=== PATIENT | male | born 1960 | race Caucasian/White ===

== ENCOUNTER 2017-09-09 03:59 | Emergency (ER) | payer BC ==
[~2017-09-09] VITALS: Ht 170.2 cm; Wt 66.0 kg
[2017-09-09 04:00] VITALS: BP 190/102; PULSE 85; RESP 18; TEMP 97.8; O2SAT 95
[2017-09-09] MEDS ORDERED: AMOXICILLIN (TRIHYDRATE) 500 MG CAP PO ONE (04:20)
[2017-09-09] MEDS ORDERED: AMOXICILLIN 875 MG TAB PO ONE (04:20)
[2017-09-09] MEDS ORDERED: AMOXICILLIN (TRIHYDRATE) 500 MG CAP ONE (04:34)
[2017-09-09] MEDS ORDERED: KETOROLAC TROMETHAMINE 60 MG/2 ML (IM) VIAL IM ONE ×2 (04:34→05:00)
[2017-09-09] MEDS ORDERED: PERC10TA27 PO (05:50)
[2017-09-09] MEDS ORDERED: AMOX875T PO (05:50)
--- NOTE | 2017-09-09 05:52 | PD ---
HPI Chief Complaint: Oral / Dental Pain or Problem Time Seen by Provider: 04:15 Travel History International Travel<30 days: No Contact w/Intl Traveler<30days: No Traveled to known affect area: No History of Present Illness HPI The patient is a 57-year-old male who complains of dental pain since yesterday. He is particularly painful around tooth #30. He has not called a dentist yet. He intends to call a dentist and he has dental insurance. He drove here tonight and he has to drive himself home. He claims a pain of 10 over 10, an aching type pain. [facility] Social History Tobacco Use: No Allergies-Medications (Allergen,Severity, Reaction): Coded Allergies: No Known Allergies (Unverified , 09/09/17) Reported Meds & Prescriptions Reported Meds & Active Scripts Active Percocet (Oxycodone-Acetaminophen) 10-325 mg Tab 1 Tab PO Q4H PRN Amoxicillin 875 Mg Tab 875 Mg PO BID Review of Systems Except as stated in HPI: all other systems reviewed are Neg Physical Exam Narrative GENERAL: The patient is alert, oriented 3 in moderate distress with his dental pain around tooth #30. His vital signs show blood pressure 192/109 but are otherwise normal. SKIN: Focused skin assessment warm/dry. HEAD: Atraumatic. Normocephalic. EYES: Pupils equal and round. No scleral icterus. No injection or drainage. ENT: No nasal bleeding or discharge. Mucous membranes pink and moist. NECK: Trachea midline. No JVD. CARDIOVASCULAR: Regular rate and rhythm. No murmur appreciated. RESPIRATORY: No accessory muscle use. Clear to auscultation. Breath sounds equal bilaterally. GASTROINTESTINAL: Abdomen soft, non-tender, nondistended. Hepatic and splenic margins not palpable. MUSCULOSKELETAL: No obvious deformities. No clubbing. No cyanosis. No edema. NEUROLOGICAL: Awake and alert. No obvious cranial nerve deficits. Motor grossly within normal limits. Normal speech. PSYCHIATRIC: Appropriate mood and affect; insight and judgment normal. DENTAL: No loose or chipped teeth. No malocclusion. There are no drainable abscesses around tooth #30 or anywhere else around the teeth. There is exquisite tenderness on tooth #30. Data Data Last Documented VS Vital Signs Date Time Temp Pulse Resp B/P (MAP) Pulse Ox O2 Delivery O2 Flow Rate FiO2 09/09/17 04:00 97.8 85 18 190/102 (131) 95 Orders Orders Ketorolac Inj (Toradol Inj) (09/09/17 04:34) Amoxicillin (Trimox) (09/09/17 04:34) Ketorolac Inj (Toradol Inj) (09/09/17 05:00) Amoxicillin (Trimox) (09/09/17 04:20) MDM Medical Decision Making Medical Screen Exam Complete: Yes Emergency Medical Condition: Yes Medical Record Reviewed: Yes Differential Diagnosis Dental infection, drainable dental abscess, Venkatesh's angina-highly unlikely Narrative Course The patient has a dental infection without any drainable abscess. Plan: He will set up appointment with a dentist and is given amoxicillin 875 mg to take twice daily for 10 days. He is given 1 g of amoxicillin orally to take now. He is also given Percocet 5/325 for pain. Diagnosis Primary Impression: Dental infection Additional Instructions: As we discussed, do not drink alcohol or drive on the Percocet. Follow-up with a dentist as soon as possible. Med/Other Pt SpecificInfo: Prescription(s) given Scripts Oxycodone-Acetaminophen (Percocet) 10-325 mg Tab 1 TAB PO Q4H Y for PAIN, #30 TAB 0 Refills Prov: Saad Alfaro MD 09/09/17 Amoxicillin (Amoxicillin) 875 Mg Tab 875 MG PO BID for Infection, #20 TAB 0 Refills Prov: Saad Alfaro MD 09/09/17 Disposition: 01 DISCHARGE HOME Condition: Stable Saad Alfaro MD Sep 09, 2017 05:52
== END 2017-09-09 04:50 | disposition home or self-care (01) ==
LOC: PHED 03:59
DX: K04.7 Periapical abscess without sinus (principal)
CPT/HCPCS: 96372; 99284; J1885

== ENCOUNTER 2018-02-01 15:40 | Emergency (ER) | payer BC ==
[~2018-02-01] VITALS: Ht 170.2 cm; Wt 95.0 kg
[~2018-02-01 15:40] MED LIST: AMOX875T PO; PERC10TA27 PO
[2018-02-01 15:45] VITALS: BP 126/86; PULSE 101; RESP 16; TEMP 98.6; O2SAT 94
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
[2018-02-01] MEDS ORDERED: SILVER SULFADIAZINE 1% CR 50 GM JAR TOPICAL ONE (17:45)
[2018-02-01] MEDS ORDERED: ACETAMINOPHEN/HYDROcodone 325 MG/5 MG TAB PO ONE (17:45)
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
[2018-02-01] MEDS ORDERED: IBUP1TAB7 PO (19:12)
[2018-02-01] MEDS ORDERED: SILV1CRE20 TOPICAL (19:12)
[2018-02-01 19:46] VITALS: BP 144/98; PULSE 98; RESP 16; O2SAT 98
== END 2018-02-01 19:47 | disposition home or self-care (01) ==
LOC: NEDAMB 15:40
DX: S50.812A Abrasion of left forearm, initial encounter (principal); S99.922A Unspecified injury of left foot, initial encounter; V23.4XXA Motorcycle driver injured in collision with car, pick-up truck or van in traffic accident, initial encounter; Y92.410 Unspecified street and highway as the place of occurrence of the external cause
CPT/HCPCS: 73660; 99283; E0113; L3260; 16000

== ENCOUNTER 2018-07-21 12:28 | Inpatient (IN) ==
[2018-07-21] MEDS ORDERED: Morphine Inj 4 MG/ML Vial IV.PUSH ONE (13:18)
--- NOTE | 2018-07-21 13:23 | ED ---
HPI General Chief Complaint: Extremity Injury, Upper Stated Complaint: lt arm injury x lastnight Time Seen by Provider: 07/21/18 13:19 Source: patient Mode of arrival: ambulatory History of Present Illness HPI narrative: 57-year-old male patient presents to the ER today, states that he was lifting a 60 pound weight when he felt a sudden pain in his left biceps area, heard a pop, and since then he has had trouble with flexing and extending his elbow. He denies any other issues or injuries. Pain is currently rated an 8 out of 10. Related Data Home Medications Medication Instructions Recorded Confirmed sildenafil [Viagra] 50 mg PO DAILY PRN 07/21/18 07/21/18 Allergies Allergy/AdvReac Type Severity Reaction Status Date / Time No Known Allergies Allergy Verified 07/21/18 12:35 Review of Systems ROS: all other systems reviewed are negative [facility] Social History Social History Substance History: No History of Abuse Smoking Status: Never smoker How Often Do You Have a Drink Containing Alcohol: Monthly or less Recent Travel in [facility] within the Last 8 Weeks: No Recent Out of Country Travel within the Last 8 Weeks: No Immunization History Tetanus Immunization: Unsure Hx Influenza Vaccine This Season: Yes Exam Narrative Exam Narrative: GENERAL: Well-developed middle-age white male patient currently and mild distress. Awake and oriented x3. SKIN: Focused skin assessment warm/ dry. HEAD: Atraumatic. Normocephalic. EYES: Pupils equal and round. No scleral icterus. No injection or drainage. ENT: No nasal bleeding or discharge. Mucous membranes pink and moist. NECK: Trachea midline. No JVD. CARDIOVASCULAR: Regular rate and rhythm. No murmur appreciated. RESPIRATORY: No accessory muscle use. Clear to auscultation. Breath sounds equal bilaterally. GASTROINTESTINAL: Abdomen soft, non-tender, nondistended. Hepatic and splenic margins not palpable. MUSCULOSKELETAL: No obvious deformities. No clubbing. No cyanosis. No edema. There is tenderness to palpation of the distal head of the biceps, and tenderness to palpation of the medial elbow, patient has decreased strength with flexing of the elbow. NEUROLOGICAL: Awake and alert. No obvious cranial nerve deficits. Motor grossly within normal limits. Normal speech. PSYCHIATRIC: Appropriate mood and affect; insight and judgment normal. Course Initial Documented Vital Signs Temperature 97.6 F 07/21/18 12:35 Pulse Rate 120 H 07/21/18 12:35 Respiratory Rate 16 07/21/18 12:35 Blood Pressure 205/101 H 07/21/18 12:35 Pulse Oximetry 95 07/21/18 12:35 Last Documented Vital Signs Temperature 97.6 F 07/21/18 12:35 Pulse Rate 85 07/21/18 17:43 Respiratory Rate 16 07/21/18 17:43 Blood Pressure 140/95 H 07/21/18 17:43 Pulse Oximetry 99 07/21/18 17:43 Medical Decision Making MDM Narrative Medical decision making narrative: X-ray did not show any signs of bony injuries. There is suspicion that this is likely a biceps tendon rupture. Case is discussed with PA for Dr. Silva who states that the patient will need an MRI and then can be released with close follow-up to the office. However, while in the ER, is noted that the patient is going intermittently into A. fib with RVR. His heart rate was in the 120s at some points, and then he would go back into a normal sinus rhythm. 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 He is not on any anticoagulation. At this point, my plan would be to admit him for further treatment of atrial fibrillation evaluation as well. Case is discussed with Dr. Camacho for admission. Medical Screen Exam Complete: Yes Emergency Medical Condition: Yes Differential Diagnosis Differential Diagnosis: Biceps muscle injury versus biceps tendon rupture versus strain Lab Data Lab results reviewed: Yes I reviewed the patient's lab results. Result diagrams: 07/21/18 13:22 07/21/18 13:22 Lab Results 07/21/18 07/21/18 Range/Units 13:22 13:22 CBC w Diff Auto diff final WBC 8.5 (4.0-11.0) th/mm3 RBC 5.32 (4.50-5.90) mil/mm3 Hgb 17.4 H (13.0-17.0) gm/dL Hct 50.7 (39.0-51.0) % MCV 95.5 (80.0-100.0) fL MCH 32.7 (27.0-34.0) pg MCHC 34.3 (32.0-36.0) % RDW 12.3 (11.6-17.2) % Plt Count 209 (150-450) th/mm3 MPV 8.5 (7.0-11.0) fL Neut % (Auto) 75.0 H (16.0-70.0) % Lymph % (Auto) 10.1 (9.0-44.0) % [place] % (Auto) 9.7 H (0.0-8.0) % Eos % (Auto) 4.6 H (0.0-4.0) % Baso % (Auto) 0.6 (0.0-2.0) % Neut # (Auto) 6.3 (1.8-7.7) th/mm3 Lymph # (Auto) 0.9 L (1.0-4.8) th/mm3 [place] # (Auto) 0.8 (0.0-0.9) th/mm3 Eos # (Auto) 0.4 (0.0-0.4) th/mm3 Baso # (Auto) 0.1 (0.0-0.2) th/mm3 WBC Differential . Differential Comment . Sodium 142 (136-145) meq/L Potassium 3.8 (3.5-5.1) meq/L Chloride 107 (98-107) meq/L Carbon Dioxide 25.7 (21.0-32.0) meq/L Anion Gap 9 (5-15) meq/L BUN 13 (7-18) mg/dL Creatinine 1.20 (0.60-1.30) mg/dL Estimated GFR 62 L (>89) mL/min Random Glucose 132 H (74-106) mg/dL Calcium 8.2 L (8.5-10.1) mg/dL Imaging Data Attestation: I personally reviewed and interpreted this imaging study as follows : Radiologist's impression: Humerus X-Ray 07/21/18 13:18 CONCLUSION: No acute bony abnormality identified. Discharge Plan Discharge Disposition Patient Disposition: 30 Still Patient Discharge Condition Condition: Stable Discharge Details Anticipated Discharge Date: 07/21/18 Diagnosis: Biceps tendon rupture, traumatic, Atrial fibrillation Physicians Team ED Provider: Dena Foster Primary Care Provider: Primary Care Physici,Belén Rxs /Orders / Referrals /Forms Prescriptions: No Action sildenafil [Viagra] 50 mg Tablet 50 mg PO DAILY PRN (Reason: Erectile Dysfunction) RF: 0 Referrals: Sin Silva MD [Physician] - 3 Days Status ED Status: With Doctor
[2018-07-21 13:27] LABS: Baso # (Auto) 0.1 th/mm3 (0.0-0.2); Baso % (Auto) 0.6 % (0.0-2.0); Eos # (Auto) 0.4 th/mm3 (0.0-0.4); Eos % (Auto) 4.6 % (0.0-4.0); Hematocrit 50.7 % (39.0-51.0); Hemoglobin 17.4 gm/dL (13.0-17.0); Lymph # (Auto) 0.9 th/mm3 (1.0-4.8); Lymph % (Auto) 10.1 % (9.0-44.0); Mean Corpuscular HGB Conc 34.3 % (32.0-36.0); Mean Corpuscular Hemoglobin 32.7 pg (27.0-34.0); Mean Corpuscular Volume 95.5 fL (80.0-100.0); Mean Platelet Volume 8.5 fL (7.0-11.0); Mono # (Auto) 0.8 th/mm3 (0.0-0.9); Mono % (Auto) 9.7 % (0.0-8.0); Neut # (Auto) 6.3 th/mm3 (1.8-7.7); Platelet Count 209 th/mm3 (150-450); Red Blood Count 5.32 mil/mm3 (4.50-5.90); Red Cell Distribution Width 12.3 % (11.6-17.2); White Blood Count 8.5 th/mm3 (4.0-11.0)
[2018-07-21 13:38] LABS: Potassium 3.8 meq/L (3.5-5.1)
[2018-07-21 13:41] LABS: Calcium 8.2 mg/dL (8.5-10.1); Carbon Dioxide 25.7 meq/L (21.0-32.0)
--- NOTE | 2018-07-21 14:35 | XR ---
EXAM DATE: 07/21/2018 1:18 PM EDT AGE/SEX: 57 years / Male INDICATIONS: Left humerus pain after lifting weights CLINICAL DATA: This is the patient's initial encounter. Patient reports that signs and symptoms have been present for 2 days and indicates a pain score of 8/10. MEDICAL/SURGICAL HISTORY: None. None. COMPARISON: No prior exams available for comparison. FINDINGS: Bony structures are intact and in normal alignment. Osseous density is normal. Soft tissues are unre markable. No radiopaque foreign bodies seen. CONCLUSION: No acute bony abnormality identified. Electronically signed by: Shiraz Dixon MD 07/21/2018 2:33 PM EDT
[2018-07-21] MEDS ORDERED: dilTIAZem Inj 125 MG in Sodium Chlor 0.9% Inj 100 ML IV.CONT PRN (18:06)
--- NOTE | 2018-07-21 18:20 | MR ---
EXAM DATE: 07/21/2018 3:42 PM EDT AGE/SEX: 57 years / Male INDICATIONS: Tendon tear. CLINICAL DATA: This is the patient's initial encounter. Patient reports that signs and symptoms have been present for 1 day and indicates a pain score of 5/10. MEDICAL/SURGICAL HISTORY: None. None. COMPARISON: No prior exams available for comparison. TECHNIQUE: Multiplanar, multisequence MRI examination was performed without contrast. FINDINGS: The examination demonstrates diffuse edematous changes involving the distal biceps and biceps tendon. The biceps tendon itself is coiled and retracted indicating avulsion from the bicipital tuberosity a s well. The study was ordered as MRI of the humerus as such there is only one set of axial images wh ich encompasses the bicipital tuberosity of the radius. I do not see the biceps tendon at this locati on. More detailed evaluation of its distal attachment could be performed with MRI imaging of the elbo w. The proximal aspect of the musculotendinous junction appears intact however there are edematous richter es in the proximal fibers of the musculotendinous junction suggesting partial tear at this location a s well. No abnormal marrow signal seen within the humerus. The remainder the examination is unremarkable. CONCLUSION: The exam the biceps tendon to be coiled within the distal arm and extensive edematous changes. Findin gs would be consistent with a tear of the biceps tendon I believe this represents a complete tear at the level of the bicipital tuberosity. There is also significant edema and abnormal signal in the mus culotendinous junction suggesting at least partial tear at this level as well. More detailed evaluati on of this could be performed with MRI imaging of the elbow if it is felt clinically warranted. Electronically signed by: Shiraz Dixon MD 07/21/2018 6:19 PM EDT
[2018-07-21 19:31] LABS: Creatine Kinase 291 U/L (39-308)
[2018-07-21 20:48] VITALS: TEMP 97.9
[2018-07-21] MEDS: Heparin - SQ 10,000 UNITS/ML Vial SQ SCH (21:16)
[2018-07-21 23:36] LABS: Creatine Kinase 255 U/L (39-308)
[2018-07-22 01:33] LABS: T4 (Thyroxine) 6.1 mcg/dL (4.5-12.1)
[2018-07-22 05:21] VITALS: O2SAT 96
[2018-07-22] MEDS: dilTIAZem CD 120 MG Capsule PO SCH ×2 (09:27→10:11)
[2018-07-22] MEDS: Heparin - SQ 10,000 UNITS/ML Vial SQ SCH (09:27)
--- NOTE | 2018-07-22 10:50 | XR ---
EXAM DATE: 07/22/2018 12:00 AM EDT AGE/SEX: 57 years / Male INDICATIONS: Chest pain CLINICAL DATA: This is the patient's initial encounter. Patient reports that signs and symptoms have been present for 2 days and indicates a pain score of 5/10. MEDICAL/SURGICAL HISTORY: None. None. COMPARISON: No prior exams available for comparison. FINDINGS: The heart is minimally enlarged. There is no congestive failure, pneumothorax or pleural effusion. No pneumothorax. The portion of the bony skeleton visualized is unremarkable. CONCLUSION: Mild compensated cardiomegaly Electronically signed by: Piero Dixon MD 07/22/2018 10:49 AM EDT
[2018-07-22] MEDS ORDERED: dilTIAZem CD 120 MG Capsule PO ONE (11:00)
[2018-07-22 11:17] VITALS: BP 137/85; PULSE 74; RESP 21
--- NOTE | 2018-07-22 11:34 | P.HPIM ---
History of Present Illness Primary Care Physician: No Primary Care Physician History of Present Illness: Mr. Sloan is a 57-year-old male. He came into the emergency department after having pain at his left bicep. This occurred while he was lifting weights while working out. Tendon tear is present, Ortho surgery has reviewed the imaging recommended outpatient follow-up. However, patient was found to be in A. fib RVR in the emergency department. He was started on diltiazem overnight and monitored. He has resolution of his A. fib RVR at this point. This morning we will transitioning him to p.o. treatment. Eliquis has been started as a blood thinner. Cardiology has evaluated the patient this morning. Further monitoring recommended. No complaints of chest pain. Negative ACS evaluation. - Diagnosis (1) New onset atrial fibrillation (2) Atrial fibrillation with RVR (3) Biceps tendon rupture, traumatic (4) Atrial fibrillation Inpatient Certification: I certify that the inpatient services were ordered in accordance with Medicare regulations governing the order. This includes certification that hospital inpatient services are reasonable and necessary and in the case of services not specified as inpatient-only under 42 CFR 419.22(n), that they are appropriately provided as inpatient services in accordance to with the 2-midnight benchmark under 43 CFR 412.3(e) Estimated Total Length of Stay (Days): 3 Plans for Post Hospital Care: Home Review of Systems Constitutional: No fevers, no chills no night sweats, no fatigue, no weakness Eyes: No eye pain, no blurry vision, no loss of vision ENT: No sore throat, no ear pain, no rhinorrhea Cardiovascular: No chest pain, no tachycardia, no palpitations, no shortness of breath, no syncope Respiratory: No wheezing, no cough, no shortness of breath Gastrointestinal: No abdominal pain, no black tarry stools, no bright red blood per rectum, no vomiting, no diarrhea Musculoskeletal: No joint pain, no muscle cramps, no stiffness, pain at left biceps tendon Integumentary: No rash, no ulcers, no drainage Neurologic: No sensory loss, no loss of motor function, no dizziness Psychiatric: No behavioral changes, no hallucinations, no suicidal ideations PMFSH - History History Provided By: Patient - Medical History Medical History: Medical History (Last Updated 07/22/18 @ 11:28 by Shiraz Camacho MD) Benign prostatic hyperplasia - Family History Family History: Family History (Last Updated 07/22/18 @ 11:29 by Shiraz Camacho MD) Other Osteoarthritis - Tobacco History Second Hand Smoke Exposure: No Smoking Status: Never smoker - Alcohol History How Often Do You Have a Drink Containing Alcohol: 4 or more times a week - Substance Use History Substance History: No History of Abuse - Substance Use Type Alcohol Status: Active Route Used: By Mouth Frequency: 4 beers every other day 6 pack on weekends Reason for Use: Calm Down - Travel History Recent Travel in the [place] Within the Last 8 Weeks: No Recent Travel Out of the Country Within the Last 8 Weeks: No - Immunization History Tetanus Immunization: Unsure Hx Influenza Vaccine This Season: Yes Medications and Allergies Active Medications: Active Medications Apixaban (Eliquis) 5 mg PO BID TERRI Diltiazem HCl (Cardizem Cd 24hr) 240 mg PO DAILY TERRI Sodium Chloride (Ns Flush) 2 ml IV.FLUSH PRN PRN PRN Reason: FLUSH AFTER USING IV ACCESS Sodium Chloride (Ns Flush) 2 ml IV.FLUSH BID TERRI Last Admin: 07/22/18 09:29 Dose: 2 ml Allergies Allergy/AdvReac Type Severity Reaction Status Date / Time No Known Allergies Allergy Verified 07/21/18 12:35 Home Medications Medication Instructions Recorded Confirmed Type sildenafil [Viagra] 50 mg PO DAILY PRN 07/21/18 07/21/18 History Exam Vital signs: Vital Signs 07/21/18 12:35 07/21/18 12:53 07/21/18 13:30 Temperature 97.6 F Pulse Rate 120 H 118 H 120 H Respiratory Rate 16 18 15 Blood Pressure 205/101 H 152/85 H 150/88 H Pulse Oximetry 95 96 100 07/21/18 14:30 07/21/18 15:46 07/21/18 17:43 Temperature Pulse Rate 75 80 85 Respiratory Rate 16 16 16 Blood Pressure 159/100 H 127/88 140/95 H Pulse Oximetry 96 100 99 07/21/18 19:04 07/21/18 20:46 07/21/18 22:30 Temperature 97.9 F Pulse Rate 90 125 H 88 Respiratory Rate 16 27 H 25 H Blood Pressure 158/98 H 159/93 H 133/88 Pulse Oximetry 96 96 96 07/21/18 23:00 07/22/18 01:30 07/22/18 03:00 Temperature Pulse Rate 86 94 H 78 Respiratory Rate 11 L 21 12 Blood Pressure 139/86 127/86 133/83 Pulse Oximetry 94 L 96 95 07/22/18 05:00 07/22/18 07:00 07/22/18 07:30 Temperature Pulse Rate 74 76 80 Respiratory Rate 14 10 L 12 Blood Pressure 97/70 L 123/86 103/74 Pulse Oximetry 96 95 97 07/22/18 08:00 07/22/18 08:30 07/22/18 09:00 Temperature Pulse Rate 82 98 H 92 H Respiratory Rate 21 19 19 Blood Pressure 109/75 138/97 H 151/92 H Pulse Oximetry 95 97 95 07/22/18 09:30 07/22/18 10:00 07/22/18 10:30 Temperature Pulse Rate 88 92 H 74 Respiratory Rate 18 22 24 Blood Pressure 120/89 144/98 H 137/85 Pulse Oximetry 96 96 96 07/22/18 11:00 Temperature Pulse Rate 74 Respiratory Rate 21 Blood Pressure Pulse Oximetry Intake & Output 07/21/18 07/22/18 07/22/18 18:59 06:59 18:59 Intake Total 215 / 215 Output Total 900 / 900 Balance -900 / -900 215 / 215 Weight 97 kg 97.2 kg Intake: IV 15 / 15 Cardizem Inj 125 MG In NS Inj 15 / 15 100 ML @ 5 MG/HR 5 mls/hr IV. CONT TITRATE PRN Rx#:[id number] Oral 200 / 200 Output: Urine 900 / 900 Other: Date of Last Bowel Movement 08/21/18 08/21/18 Weight On Admission 97.3 kg Narrative: GENERAL: NAD, A&Ox3 HEAD: Normocephalic. NECK: Supple, trachea midline. No lymphadenopathy. EYES: No scleral icterus. No injection or drainage. CARDIOVASCULAR: Regular rate and rhythm without murmurs, gallops, or rubs. RESPIRATORY: Breath sounds equal bilaterally. No accessory muscle use. GASTROINTESTINAL: Abdomen soft, non-tender, nondistended. MUSCULOSKELETAL: No cyanosis, or edema. Tenderness at distal biceps tendon, no palpable abnormality of the biceps muscle. SKIN: Warm and dry. NEURO: No focal neurological deficits. Results - Labs CBC & Chem 7: 07/21/18 13:22 07/21/18 13:22 Labs: Short CBC 07/21/18 Range/Units 13:22 WBC 8.5 (4.0-11.0) th/mm3 Hgb 17.4 H (13.0-17.0) gm/dL Hct 50.7 (39.0-51.0) % Plt Count 209 (150-450) th/mm3 BMP 07/21/18 13:22 Sodium 142 Potassium 3.8 Chloride 107 Carbon Dioxide 25.7 BUN 13 Creatinine 1.20 Calcium 8.2 L Cardiac Enzymes 07/21/18 07/21/18 Range/Units 19:02 22:30 Total Creatine Kinase 291 255 (39-308) U/L Troponin I Less than 0.02 L Less than 0.02 L (0.02-0.05) ng/mL - Imaging Impressions Humerus X-Ray 07/21/18 13:18 CONCLUSION: No acute bony abnormality identified. Humerus MRI 07/21/18 15:07 CONCLUSION: The exam the biceps tendon to be coiled within the distal arm and extensive edematous changes. Findings would be consistent with a tear of the biceps tendon I believe this represents a complete tear at the level of the bicipital tuberosity. There is also significant edema and abnormal signal in the musculotendinous junction suggesting at least partial tear at this level as well. More detailed evaluation of this could be performed with MRI imaging of the elbow if it is felt clinically warranted. Chest X-Ray 07/22/18 00:00 CONCLUSION: Mild compensated cardiomegaly Caprini VTE Risk Assessment Caprini VTE Risk Assessment: Moderate/High Risk (score >= 2) Caprini Risk Assessment Model: Point Value = 1 Point Value = 2 Point Value = 3 Point Value = 5 Age 41-60 Minor surgery BMI > 25 kg/m2 Swollen legs Varicose veins or History of unexplained or recurrent spontaneous Oral contraceptives or hormone replacement Sepsis (< 1 month) Serious lung disease, including pneumonia (< 1 month) Abnormal pulmonary function Acute myocardial infarction Congestive heart failure (< 1 month) History of inflammatory bowel disease Medical patient at bed rest Age 61-74 Arthroscopic surgery Major open surgery (> 45 min) Laparoscopic surgery (> 45 min) Malignancy Confined to bed (> 72 hours) Immobilizing plaster cast Central venous access Age >= 75 History of VTE Family history of VTE Factor V Leiden Prothrombin [id number] Lupus anticoagulant Anticardiolipin antibodies Elevated serum homocysteine Heparin-induced thrombocytopenia Other congenital or acquired thrombophilia Stroke (< 1 month) Elective arthroplasty Hip, pelvis, or leg fracture Acute spinal cord injury (< 1 month) Prophylaxis Regimen: Total Risk Factor Score Risk Level Prophylaxis Regimen 0-1 Low Early ambulation 2 Moderate Order ONE of the following: *Sequential Compression Device (SCD) *Heparin 5000 units SQ BID 3-4 Higher Order ONE of the following medications: *Heparin 5000 units SQ TID *Enoxaparin/Lovenox 40 mg SQ daily (WT < 150 kg, CrCl > 30 mL/min) *Enoxaparin/Lovenox 30 mg SQ daily (WT < 150 kg, CrCl > 10-29 mL/min) *Enoxaparin/Lovenox 30 mg SQ BID (WT < 150 kg, CrCl > 30 mL/min) AND/OR *Sequential Compression Device (SCD) 5 or more Highest Order ONE of the following medications: *Heparin 5000 units SQ TID (Preferred with Epidurals) *Enoxaparin/Lovenox 40 mg SQ daily (WT < 150 kg, CrCl > 30 mL/min) *Enoxaparin/Lovenox 30 mg SQ daily (WT < 150 kg, CrCl > 10-29 mL/min) *Enoxaparin/Lovenox 30 mg SQ BID (WT < 150 kg, CrCl > 30 mL/min) AND *Sequential Compression Device (SCD) Assessment and Plan - Assessment (1) New onset atrial fibrillation Code(s): I48.91 - Status: Acute (2) Atrial fibrillation with RVR Code(s): I48.91 - Status: Acute (3) Biceps tendon rupture, traumatic Code(s): S46.219A - Status: Acute (4) Atrial fibrillation Code(s): I48.91 - Status: Acute - Plan 57-year-old male admitted secondary to new onset A. fib with RVR A. fib RVR Resolved New onset A. fib Eliquis initiated Follow with cardiology once discharged IV diltiazem transition to p.o. diltiazem Follow on telemetry Eliquis DVT Prophylaxis Eliquis H&P: Quality - VTE Deep Vein Thrombosis/Pulmonary Embolism Present on Admission: No
--- NOTE | 2018-07-22 11:39 | MB ---
cc: Shmuel Barfield MD DATE: 07/22/2018 REASON FOR CONSULTATION: Atrial fibrillation. HISTORY OF PRESENT ILLNESS: Herb Sloan is a 57-year-old man who just saw Dr. Pedraza in my office in 04/2019 for a preventative cardiology visit. His sister had heart problems and at age 65, and he has some dyslipidemia and increased weight. The patient has had no cardiovascular symptoms. He came in because while lifting weights he felt his left biceps pop. It is already doing much better than it was yesterday. He was noted on telemetry to be going in and out of rapid atrial fibrillation. Actually, from what I can see all of it has been atrial fibrillation, although I did see a brief strip at 9:21 p.m. last night when I did see some sinus beats. The patient is unaware of the atrial fibrillation. Does not feel his heart rate faster. Does not notice any exercise intolerance. Denies chest pain, shortness of breath, palpitations, syncope or presyncope. He feels fine since admission, and as mentioned his left arm is feeling better. PAST MEDICAL HISTORY: Includes dyslipidemia, impotence, for which he was taken 2 Viagra tablets total, obesity. ALLERGIES: NONE. FAMILY HISTORY: His sister had some type of heart problems for which she at age 65. SOCIAL HISTORY: He has never smoked. 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 He is single. Drinks alcohol lightly. REVIEW OF SYSTEMS: Noncontributory. PHYSICAL EXAMINATION: GENERAL: Well-developed, well-nourished white male, alert and oriented, in no acute distress. VITAL SIGNS: Charted. HEENT: Unremarkable. NECK: No JVD. No bruits. CHEST: Clear to auscultation. CARDIAC: S1, S2. Irregular rate and rhythm. No murmurs or gallops. ABDOMEN: Soft, nontender. No masses or organomegaly. EXTREMITIES: No clubbing, cyanosis or edema. Pulses are intact. DIAGNOSTIC DATA: EKG demonstrated atrial fibrillation with rapid ventricular response. There are no ischemic changes. Chest x-ray was not done. LABORATORY DATA: Hematocrit is 50.7. Creatinine is 1.2. Troponins are negative. IMPRESSION: Asymptomatic paroxysmal atrial fibrillation with rapid ventricular response. RECOMMENDATIONS: I am changing the Cardizem to 240 mg daily. He is a CHADS-VASc 1, but I am going to start Eliquis 5 b.i.d. in anticipation that he might need to be converted with an ablation in the future. If his rate becomes controlled this afternoon, he can be sent home and followed up as an outpatient with Dr. Pedraza; however, a chest x-ray to complete his cardiac workup as well. Thank you very much for asking me to see him. MD KRYSTAL Starkey/nicky , 10:16 AM , 10:24 AM
--- NOTE | 2018-07-22 14:16 | ECHRPT ---
Indication: ATRIAL FIB/FLUTTER CONCLUSIONS Normal left ventricular size. Moderate concentric left ventricular hypertrophy. The left ventricular systolic function is normal with an estimated ejection fraction in the range of 55-60%. 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 Aortic valve sclerosis is present. There is trace tricuspid valve regurgitation. Trivial pulmonary valve regurgitation. BP: / HR: Rhythm: Sinus MEASUREMENTS (Male / Female) Normal Values Technical Quality:Fair 2D ECHO LV Diastolic Diameter PLAX 3.9 cm 4.2 - 5.9 / 3.9 - 5.3 cm LV Systolic Diameter PLAX 2.9 cm IVS Diastolic Thickness 1.4 cm 0.6 - 1.0 / 0.6 - 0.9 cm LVPW Diastolic Thickness 1.4 cm 0.6 - 1.0 / 0.6 - 0.9 cm LV Relative Wall Thickness 0.7 RV Internal Dim ED PLAX 2.7 cm LVOT Diameter 2.3 cm Aortic Root Diameter 4.2 cm LA Systolic Diameter LX 3.2 cm 3.0 - 4.0 / 2.7 - 3.8 cm M-MODE AV Cusp Separation MM 2.3 cm DOPPLER AV Peak Velocity 75.8 cm/s AV Peak Gradient 2.3 mmHg AV Mean Gradient 1.5 mmHg AV Velocity Time Integral 11.5 cm LVOT Peak Velocity 54.1 cm/s LVOT Peak Gradient 1.2 mmHg LVOT Velocity Time Integral 8.5 cm AV Area Cont Eq vti 3.0 cm AV Area Cont Eq pk 3.0 cm Mitral E Point Velocity 65.2 cm/s LV E' Lateral Velocity 9.8 cm/s Mitral E to LV E' Lateral Ratio 6.7 LV E' Septal Velocity 7.2 cm/s Mitral E to LV E' Septal Ratio 9.0 TR Peak Velocity 195.0 cm/s TR Peak Gradient 15.2 mmHg Right Atrial Pressure 10.0 mmHg Pulmonary Artery Systolic Pressu 25.2 mmHg Right Ventricular Systolic Press 25.2 mmHg PV Peak Velocity 44.9 cm/s PV Peak Gradient 0.8 mmHg FINDINGS LEFT VENTRICLE Normal left ventricular size. Moderate concentric left ventricular hypertrophy. The left ventricular systolic function is normal with an estimated ejection fraction in the range of 55-60%. RIGHT VENTRICLE Normal right ventricular size and systolic function. LEFT ATRIUM The left atrial size is normal. RIGHT ATRIUM The right atrial size is normal. ATRIAL SEPTUM Thickened atrial septum is noted with morphological features most consistent with a lipomatous atria l septum. No atrial level shunt is demonstrated by color flow Doppler interrogation. AORTA The aortic root and proximal ascending aorta are normal in size on limited imaging. MITRAL VALVE Structurally normal mitral valve. No mitral valve stenosis or regurgitation. AORTIC VALVE Aortic valve sclerosis is present. TRICUSPID VALVE There is trace tricuspid valve regurgitation. PULMONARY VALVE Trivial pulmonary valve regurgitation. VESSELS The inferior vena cava was not well visualized. PERICARDIUM No pericardial effusion. Kevin Marie MD, FACC, [facility] [place] (Electronically Signed) Final Date:22 July 2018 14:15
--- NOTE | 2018-07-22 15:02 | ECG ---
Date Performed: 07/21/2018 Time Performed: 12:54:18 PTAGE: 57 years EKG: ATRIAL FIBRILLATION WITH RAPID VENTRICULAR RESPONSE ABNORMAL RHYTHM ECG INTERPRETATION BASE D ON A DEFAULT AGE OF 40 YEARS NO PREVIOUS TRACING DOCTOR: Naveed Gross Interpretating Date/Time 07/22/2018 15:00:10
--- NOTE | 2018-07-22 17:03 | P.DS ---
Date of admission: 07/21/18 18:11 Primary care physician: No Primary Care Physician Brief History from admission: Mr. Sloan is a 57-year-old male. He came into the emergency department after having pain at his left bicep. This occurred while he was lifting weights while working out. Tendon tear is present, Ortho surgery has reviewed the imaging recommended outpatient follow-up. However, patient was found to be in A. fib RVR in the emergency department. He was started on diltiazem overnight and monitored. He has resolution of his A. fib RVR at this point. This morning we will transitioning him to p.o. treatment. Eliquis has been started as a blood thinner. Cardiology has evaluated the patient this morning. Further monitoring recommended. No complaints of chest pain. Negative ACS evaluation. DS: Diagnosis - Discharge Diagnosis (1) New onset atrial fibrillation Status: Acute (2) Atrial fibrillation with RVR Status: Acute (3) Biceps tendon rupture, traumatic Status: Acute (4) Atrial fibrillation Status: Acute DS: Medications - Discharge Medications Prescriptions: apixaban [Eliquis] 5 mg PO BID #60 tab diltiazem HCl 240 mg PO DAILY #30 cap DS: Summary Hospital Course: Mr. Sloan is a 57-year-old male. He is admitted secondary to A. fib RVR. Onset of A. fib RVR occurred after patient sustained an injury of his left distal biceps tendon. The tendon injury will be addressed as an outpatient per orthopedic as an inpatient the patient responded well to diltiazem IV upfront. He has been transitioned to 240 mg p.o. diltiazem CD daily. additionally he has been initiated on Eliquis. He is monitored through this morning and has no episodes through the afternoon. Medically stable and cleared for discharge at that time. Dr. Barfield has cleared this patient for discharge. Plan for follow- up with agent spa desk Dr. Barfield as an outpatient. - Time Spent with Patient Total time spent providing and/or coordinating discharge services: Less than 30 minutes - Quality: VTE Deep Vein Thrombosis/Pulmonary Embolism Present on Admission: No Exam Vital signs: Vital Signs 07/21/18 17:43 07/21/18 19:04 07/21/18 20:46 Temperature 97.9 F Pulse Rate 85 90 125 H Respiratory Rate 16 16 27 H Blood Pressure 140/95 H 158/98 H 159/93 H Pulse Oximetry 99 96 96 07/21/18 22:30 07/21/18 23:00 07/22/18 01:30 Temperature Pulse Rate 88 86 94 H Respiratory Rate 25 H 11 L 21 Blood Pressure 133/88 139/86 127/86 Pulse Oximetry 96 94 L 96 07/22/18 03:00 07/22/18 05:00 07/22/18 07:00 Temperature Pulse Rate 78 74 76 Respiratory Rate 12 14 10 L Blood Pressure 133/83 97/70 L 123/86 Pulse Oximetry 95 96 95 07/22/18 07:30 07/22/18 08:00 07/22/18 08:30 Temperature Pulse Rate 80 82 98 H Respiratory Rate 12 21 19 Blood Pressure 103/74 109/75 138/97 H Pulse Oximetry 97 95 97 07/22/18 09:00 07/22/18 09:30 07/22/18 10:00 Temperature Pulse Rate 92 H 88 92 H Respiratory Rate 19 18 22 Blood Pressure 151/92 H 120/89 144/98 H Pulse Oximetry 95 96 96 07/22/18 10:30 07/22/18 11:00 Temperature Pulse Rate 74 74 Respiratory Rate 24 21 Blood Pressure 137/85 Pulse Oximetry 96 Intake & Output 07/21/18 07/22/18 07/22/18 18:59 06:59 18:59 Intake Total 215 / 215 Output Total 900 / 900 Balance -900 / -900 215 / 215 Weight 97 kg 97.2 kg Intake: IV 15 / 15 Cardizem Inj 125 MG In NS Inj 15 / 15 100 ML @ 5 MG/HR 5 mls/hr IV. CONT TITRATE PRN Rx#:[id number] Oral 200 / 200 Output: Urine 900 / 900 Other: Date of Last Bowel Movement 08/21/18 08/21/18 Weight On Admission 97.3 kg Results Procedures completed during hospitalization: None Labs on day of discharge: Labs from last 24 hours 07/21/18 07/21/18 22:30 19:02 Total Creatine Kinase 255 291 Troponin I Less than 0.02 L Less than 0.02 L TSH 2.580 Thyroxine (T4) 6.1 - Impressions ITS Impressions Humerus X-Ray 07/21/18 13:18 CONCLUSION: No acute bony abnormality identified. Humerus MRI 07/21/18 15:07 CONCLUSION: The exam the biceps tendon to be coiled within the distal arm and extensive edematous changes. Findings would be consistent with a tear of the biceps tendon I believe this represents a complete tear at the level of the bicipital tuberosity. There is also significant edema and abnormal signal in the musculotendinous junction suggesting at least partial tear at this level as well. More detailed evaluation of this could be performed with MRI imaging of the elbow if it is felt clinically warranted. Chest X-Ray 07/22/18 00:00 CONCLUSION: Mild compensated cardiomegaly Discharge Plan - Discharge Disposition Patient Disposition: Discharge Home - Discharge Condition Condition: Stable - Discharge Order Discharge Orders: Discharge Order (Routine); Ordered 07/22/18 Ordered By: Shiraz Camacho - Discharge Details Anticipated Discharge Date: 07/21/18 - Physicians Team Primary Care Provider: Primary Care Higinioi,Belén Attending Provider: Shiraz Camacho Other Providers: Jovani Hendrix MD
[2018-07-23] MEDS ORDERED: dilTIAZem CD 240 MG Capsule PO SCH (09:00)
== END 2018-07-22 14:50 | disposition home or self-care (01) ==
LOC: PHED 12:28 → PHEDA 18:11 → PHICU 20:37
PROVIDERS: ADMIT Hospitalist; ATTEND Hospitalist